=== PATIENT | female | born 1985 | race Caucasian/White ===

== ENCOUNTER 2025-05-10 07:58 | Emergency (ER) | payer MEDICARE, MEDICAID, SELFPAY ==
[2025-05-10 07:59] VITALS: BP 170/100; PULSE 91; RESP 16; TEMP 36.6; O2SAT 99; BMI 33.0
--- NOTE | 2025-05-10 08:15 | EDS_ITS ---
HPI History of Present Illness Chief Complaint: Substance Abuse Narrative Narrative: 39-year-old female past medical history of gastric sleeve surgery presents with her because of signs of withdrawal from stimulant which she has been experiencing yesterday. They relate history that they bought something at the local smoke shop, and took it 2 days ago on Saturday. It was yesterday morning that she awoke and started feeling anxious, with nausea and dry heaving. She denies any gross hematemesis. No abdominal pain. She states that she feels like she is withdrawing from something. She has a feeling like she cannot sit still. [facility] History no medical history Home Medications ?Medication ?Instructions ?Recorded ?Last Taken ?Type hydroxyzine pamoate 25 mg capsule 50 mg (2 x 25 mg) PO TID PRN PRN 05/10/25 Unknown Rx Anxiety #15 CAPSULES sertraline 100 mg tablet 100 mg PO DAILY 05/10/2507/26 History Allergy/AdvReac Type Severity Reaction Status Date / Time latex AdvReac Mild Rash Verified 05/10/25 07:59 Social History Smoking Status: Current every day smoker tobacco type: cigarettes ROS ROS ED ROS Narrative Review of systems positive for anxiety, shakiness, nausea and dry heaving. No fevers or chills, no abdominal pain. No exacerbating or alleviating factors. EXAM Physical Exam Narrative Exam Narrative: Afebrile. Vital signs noted. Elevated blood pressure. HEENT examination grossly unremarkable. Neck soft and supple without stridor. Cardiovascular examination regular rate and rhythm. No tachycardia. Lungs are clear to auscultation bilaterally. Abdomen soft and nontender without guarding or rebound. Positive bowel sounds. Neurological examination is nonfocal, nonlateralizing. No pedal edema. Const Vital Signs: 05/10/25 07:59 Temperature 97.8 F Temperature Source Oral Pulse Rate 91 Respiratory Rate 16 Blood Pressure 170/100 H Blood Pressure Mean 123 Pulse Ox 99 Oxygen Delivery Method Room Air MDM MDM MDM Narrative Medical decision making narrative: Differential diagnosis includes but not limited to stimulant overdose versus anxiety versus pancreatitis versus other electrolyte abnormality. Patient will be administered lorazepam and ondansetron. I will check her basic laboratory work including CBC, CMP, lipase, and test. She will be observed here in the emergency department. I reviewed her laboratory work and she has normal white count of 9.2 with hemoglobin stable at 10.8, platelet count 275. Electrolyte panel is grossly unremarkable except for carbon dioxide of 17.8 which I think may be secondary to hyperventilation, glucose 104, LFTs grossly unremarkable. Lipase normal at 26 so I doubt pancreatitis, serum negative. After Ativan and ondansetron, repeat examination at approximately 9:30 AM shows her laying on the bed with her . She states she feels anxious and jittery. I do not feel she requires admission at this time. I will write her for a few Vistaril capsules 50 mg to take as needed anxiety and she will follow-up with her primary care provider. She was told to avoid the use of stimulants in the future. Return instructions to the emergency department were reviewed. Disposition is discharged home in stable condition. History & Record Review Discussion w/independent historian: Patient Additional record(s) reviewed:: No prior records (No prior ED visits to review) Lab Data Attestation: I reviewed the patient's lab results. Labs: Laboratory Results - last 24 hr 05/10/25 08:20 WBC 9.2 RBC 4.22 Hgb 10.8 L Hct 33.1 L MCV 78.4 L MCH 25.6 L MCHC 32.6 RDW Std Deviation 42.0 RDW Coeff of Greg 14.7 H Plt Count 275 MPV 9.7 Immature Gran % (Auto) 0.200 Neut % (Auto) 84.4 H Lymph % (Auto) 9.0 L [place] % (Auto) 5.5 Eos % (Auto) 0.5 Baso % (Auto) 0.4 Absolute Neuts (auto) 7.8 H Absolute Lymphs (auto) 0.83 Nucleated RBC % 0 Sodium 138 Potassium 3.4 Chloride 107 Carbon Dioxide 17.8 L Anion Gap 13 BUN 5 Creatinine 0.64 L Estim Creat Clear Calc 140.18 Est GFR (MDRD) Non-Af 115 BUN/Creatinine Ratio 8.0 L Glucose 104 H Calcium 8.8 Total Bilirubin 0.56 AST 16 ALT 9 Alkaline Phosphatase 80 Total Protein 6.7 Albumin 3.9 Globulin 2.8 Albumin/Globulin Ratio 1.4 Lipase 26 Serum , Qual NEGATIVE Discharge Plan Triage Chief Complaint: Substance Abuse ED Provider: Cabrera Mckinney Dx/Rx/DC Orders Clinical Impression: Shakiness, Anxiety reaction, Stimulant abuse Instructions: ED Drug Abuse Prescriptions: New hydroxyzine pamoate 25 mg capsule 50 mg PO TID PRN PRN (Reason: Anxiety) Qty: 15 0RF No Action sertraline 100 mg tablet 100 mg PO DAILY Primary Care Provider: DA WHITFIELD Referrals: DA WHITFIELD [Other] - 1-2 Days if not improving Activity Restrictions/Additional Instructions: Avoid use of stimulants. Return with new or worsening symptoms. Print Language: Yoruba Disposition Disposition: Home, Self Care
[2025-05-10] MEDS: Lorazepam 2 MG/ML WCH Syringe 1 MG IV (08:28)
[2025-05-10] MEDS: Ondansetron 4 MG/2 ML Vial IV (08:28)
[2025-05-10 08:45] LABS: Absolute Lymphocyte Count 0.83 X10^3/uL (0.83-4.51); Absolute Neutrophil Count 7.8 X10^3/uL (2.0-7.7); Basophil# 0.04 X10^3/uL; Basophil% 0.4 % (0-1); Eosinophil# 0.05 X10^3/uL; Eosinophils% 0.5 % (0-5); Hematocrit 33.1 % (37-47); Hemoglobin 10.8 g/dL (12.0-15.0); Lymphocyte # 0.83 X10^3/ul (0.83-4.51); Mean Corp Hgb Conc 32.6 g/dL (32-36); Mean Corpuscular Hgb 25.6 pg (27.0-32.0); Mean Corpuscular Volume 78.4 fL (81-99); Mean Platelet Vol. 9.7 fl (6.2-12.0); Monocyte# 0.51 X10^3/uL; Monocyte% 5.5 % (0-10); NRBC Flagged by Analyzer 0 % (0-5); Neutrophil # 7.77 X10^3/uL (2.7-7.7); Neutrophil % 84.4 % (47-70); Platelet Count 275 K/mm3 (150-450); RBC Distribution Width CV 14.7 % (11.6-14.6); Red Blood Count 4.22 M/mm3 (4.2-5.4); White Blood Count 9.2 K/mm3 (4.4-11.0)
[2025-05-10 08:47] LABS: Internal QC Validated? YES +Cl - CLEAR BKGD; Pregnancy, Serum, hCG Quali. NEGATIVE Negative
[2025-05-10 09:16] LABS: ALB/GLOB Ratio 1.4 RATIO (0.9-2.4); AST(SGOT) 16 U/L (<=31); Alanine Aminotransfer ALT/SGPT 9 U/L (<=34); Albumin, Serum 3.9 g/dL (3.5-5.0); Alkaline Phosphatase 80 U/L (35-104); Anion Gap 13 (5-15); BUN 5 mg/dL (4-19); Calcium,Total 8.8 mg/dL (7.6-11.0); Carbon Dioxide 17.8 mmol/L (21.0-32.0); Chloride 107 mmol/L (98-108); Creatinine, Serum 0.64 mg/dL (0.70-1.20); EST Glomerular Filtration Rate 115 (>60); Estimated Creatinine Clearance 140.18 ml/min (50-250); Globulin 2.8 g/dL (2.2-4.2); Glucose 104 mg/dL (70-99); Lipase 26 U/L (13-75); Potassium 3.4 mmol/L (3.3-5.1); Protein, Total 6.7 g/dL (5.9-8.4); Sodium Level 138 mmol/L (133-145); Total Bilirubin 0.56 mg/dL (0.00-1.30)
[2025-05-10 09:48] VITALS: BP 152/76; PULSE 87; RESP 14; TEMP 36.6; O2SAT 100
== END 2025-05-10 09:49 | disposition home or self-care (01) ==
PROVIDERS: Emergency Provider Emergency Medicine; Visit Provider Emergency Medicine
DX: F41.1 Generalized anxiety disorder (principal); F15.10 Other stimulant abuse, uncomplicated; F17.210 Nicotine dependence, cigarettes, uncomplicated; Z79.899 Other long term (current) drug therapy
CPT/HCPCS: 80053; 83690; 84703; 85025; 96374; 96375; 99283; A4216; J2405